=== PATIENT | female | born 1990 | race Caucasian/White ===

== ENCOUNTER 2018-12-01 14:19 | Emergency (ER) | payer SELFPAY ==
--- NOTE | 2018-12-01 14:24 | ED Physician Documentation ---
Upper Extremity Injury - HISTORIAN Historian: patient - HPI Stated Complaint: right hand and wrist pain after injury at work Chief Complaint: Upper Extremity Injury Onset: just prior to arrival Where: work Severity: mild Duration: persistent since Context: other (she was at work and a client threw a table at her she raised her hand to avoid the table hitting her and the table hit her hand/wrist area and she has pain to that area. Primarily the right hand 2,3 and 4th fingers> Decreased ROM due to pain. Sensation + ) - ROS CONST: no problems - PAST HX Past History: Rt handed Immunizations: UTD Allergies/Adverse Reactions: Allergies Allergy/AdvReac Type Severity Reaction Status Date / Time No Known Allergies Allergy Verified 12/01/18 14:55 Home Medications: Ambulatory Orders Medication Instructions Recorded Duloxetine HCl [Cymbalta] 60 mg PO DAILY 12/01/18 Medroxyprogesterone Acetate 150 mg IM 1T 12/01/18 Promethazine HCl [Phenergan] 25 mg PO Q8 PRN 12/01/18 Ranitidine HCl 300 mg PO HS 12/01/18 acetaZOLAMIDE [Diamox] 500 mg PO BID 12/01/18 - SOCIAL HX Smoking History: non-smoker Alcohol Use: none Drug Use: none - FAMILY HX Family History: none - VITAL SIGNS Vital Signs: Vital Signs Temp Pulse Resp BP Pulse Ox 98.2 F 88 18 122/67 99 12/01/18 16:05 12/01/18 16:05 12/01/18 16:05 12/01/18 16:05 12/01/18 16:05 - REVIEWED ASSESSMENTS Nursing Assessment Reviewed: Yes Vitals Reviewed: Yes Progress - Progress Progress: 1535: discussed results. Does not want pain med due to meds she is taking DG 1540: after discussion she is willing to take Tramadol with no interaction DG ED Results Lab/Radiology - Radiology Radiology Impressions: Right wrist 3 views Clinical history pain Technique AP lateral oblique Findings: There is no fracture or dislocation. Carpal rows are intact. Impression: Negative right wrist Electronically signed on Dec 01, 2018 3:31:21 PM PROCEDURE ANALYST by: Abner Stephens Right hand 3 views Clinical history pain Technique AP lateral oblique. Findings: The fingers are in flexion all projections. No fracture or lytic changes identified. The joints appear normal Impression: Flexion of the fingers limiting evaluation No fracture dislocation is seen in the right hand Electronically signed on Dec 01, 2018 3:32:24 PM PROCEDURE ANALYST by: Abner Stephens - Orders Orders: ED Orders Category Date Time Status Manolo Wrap Affected Extremity 1T Care 12/01/18 15:46 Active Apply ice to affected area NOW Care 12/01/18 15:40 Active HAND 3 VIEWS OR MORE [RAD] Stat Exams 12/01/18 Completed WRIST 3 VIEWS OR MORE [RAD] Stat Exams 12/01/18 Completed traMADol HCL [Ultram] Med 12/01/18 15:58 Discontinued 50 mg PO NOW ONE Upper Extremity Injury Physic - Physical Exam General Appearance: no acute distress, alert Hand: normal inspection, limited ROM, soft tissue tenderness, swelling Wrist: normal inspection, non-tender, no evidence of injury, normal ROM Elbow/Forearm: normal inspection Shoulder: normal inspection, non-tender, no evidence of injury, normal ROM Neuro/Vascular/Tendon: no vascular compromise Skin: warm,dry Head/ENT: nml inspection Neck/Back: nml inspection Resp/CVS: chest non-tender, breath sounds nml, heart sounds nml, no resp. distress, lungs clear Abdomen: non-tender Discharge Clincal Impression: Right hand pain Referrals: Primary Doctor,No [Primary Care Provider] - 2 Days Comments: 1. Tylenol or Ibuprofen as directed as needed for pain 2. Ice for comfort 3. Follow up with PCP in 2-4 days 4. Return to ER for any concerns after discussion she is agreeable to pain med Tramadol 50mg take 1 by mouth every 8 hours as needed for pain Condition: Stable Disposition: 01 HOME, SELF-CARE Decision to Admit: NO Date of Decison to Admit: 12/01/18 Decision Time: 15:37
[2018-12-01] MEDS ORDERED: traMADol HCL 50 MG TABLET PO ONE (15:58)
[2018-12-01 16:16] VITALS: BP 122/67
--- NOTE | 2018-12-01 17:16 | Diagnostic Imaging Report ---
EDIE LOMELI [facility] [address] [facility] [address] 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 Carpal rows are intact. Impression: Negative right wrist Electronically signed on Dec 01, 2018 3:31:21 PM WARP HAULER by: Abner EL
--- NOTE | 2018-12-01 17:17 | Diagnostic Imaging Report ---
EDIE LOMELI [facility] [address] [facility] [address] [place], [place]. 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 Physician: EDIE LOMELI Right hand 3 views Clinical history pain Technique AP lateral oblique. Findings: The fingers are in flexion all projections. No fracture or lytic changes identified. The joints appear normal Impression: Flexion of the fingers limiting evaluation No fracture dislocation is seen in the right hand Electronically signed on Dec 01, 2018 3:32:24 PM CHEMICAL INSPECTOR by: Abner EL
== END 2018-12-01 16:13 | disposition home or self-care (01) ==
LOC: ED 14:19
DX: M79.641 Pain in right hand (principal); W20.8XXA Other cause of strike by thrown, projected or falling object, initial encounter; Y93.89 Activity, other specified; Y92.9 Unspecified place or not applicable; Y99.0 Civilian activity done for income or pay
CPT/HCPCS: 73110; 73130; 99282; 99284